=== PATIENT | female | born 1995 ===

== ENCOUNTER 2017-11-19 10:15 | Inpatient (IN) | payer OTHER ==
[~2017-11-19] VITALS: Ht 160 cm; Wt 76.7 kg
== END 2017-11-30 11:34 | DRG 766 ==
LOC: LDR 11-27 06:24 → OB/GYN 11-27 06:24 → LDR 11-30 10:15 → OB/GYN 11-30 11:34
PROVIDERS: Specialist
PROC: 4A1HXCZ Monitoring of Products of Conception, Cardiac Rate, External Approach (ICD-10-PCS; 2017-11-27)
PROC: 3E033VJ Introduction of Other Hormone into Peripheral Vein, Percutaneous Approach (ICD-10-PCS; 2017-11-27)
PROC: 4A033R1 Measurement of Arterial Saturation, Peripheral, Percutaneous Approach (ICD-10-PCS; 2017-11-27)
PROC: 10D00Z1 Extraction of Products of Conception, Low, Open Approach (ICD-10-PCS; principal; 2017-11-27 16:15)
DX: O33.8 Maternal care for disproportion of other origin (principal); O69.81X0 Labor and delivery complicated by cord around neck, without compression, not applicable or unspecified; O61.0 Failed medical induction of labor; Z3A.39 39 weeks gestation of pregnancy; Z37.0 Single live birth

== ENCOUNTER 2018-08-14 11:09 | Emergency (ER) | payer OTHER ==
[~2018-08-14] VITALS: Ht 160 cm; Wt 63.5 kg
== END 2018-08-14 13:09 | disposition home or self-care (01) ==
LOC: ER 11:09
DX: B34.9 Viral infection, unspecified (principal)